=== PATIENT | female | born 1985 ===

== ENCOUNTER 2017-08-13 08:37 | Emergency (ER) | payer OTHER, MEDICAID ==
[2017-08-13 08:42] VITALS: BP 145/95; PULSE 101; RESP 22; TEMP 98.1; O2SAT 98
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
== END 2017-08-13 10:47 | disposition home or self-care (01) ==
LOC: H.ER 08:37
DX: S39.012A Strain of muscle, fascia and tendon of lower back, initial encounter (principal); S13.4XXA Sprain of ligaments of cervical spine, initial encounter; V43.52XA Car driver injured in collision with other type car in traffic accident, initial encounter; Y92.410 Unspecified street and highway as the place of occurrence of the external cause

== ENCOUNTER 2017-09-03 09:29 | Emergency (ER) | payer OTHER, MEDICAID ==
[2017-09-03 09:40] VITALS: BP 124/87; PULSE 82; RESP 18; TEMP 98; O2SAT 98
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
== END 2017-09-03 12:48 | disposition home or self-care (01) ==
LOC: H.ER 09:29
DX: M62.838 Other muscle spasm (principal); V43.52XA Car driver injured in collision with other type car in traffic accident, initial encounter; Y92.410 Unspecified street and highway as the place of occurrence of the external cause
CPT/HCPCS: 81025; 96372; 99283; J1885